=== PATIENT | female | born 1985 | race Caucasian/White ===

== ENCOUNTER 2024-04-28 19:30 | Emergency (ER) | payer OTHER ==
[~2024-04-28] VITALS: Ht 165.1 cm; Wt 98.0 kg
[2024-04-28 20:14] LABS: HEMATOCRIT 38.7 % (35.0-50.0); MCH 29.4 (27-36); MCHC 33.6 g/dl (30-36); MCV 87.5 fl (81-99); PLATELET COUNT 420 K/uL (140-440); RBC 4.42 M/ul (4.3-5.7); RDW 13.4 (10.5-15.0)
[2024-04-28] MEDS ORDERED: DAPTOmycin 500 MG/10 ML VIAL IV ONE (20:15)
[2024-04-28] MEDS ORDERED: CEFTRIAXONE/SODIUM CHLORIDE 2 GM/100 ML PIGGYBACK IV ONE (20:15)
[2024-04-28] MEDS ORDERED: LORazepam 2 MG/ML VIAL IV ONE (20:15)
[2024-04-28 20:18] LABS: INR 0.99 (0.80-1.30); PROTIME 12.7 Sec (11.2-14.2)
[2024-04-28 20:20] LABS: PARTIAL THROMBOPLASTIN TIME 30.5 Sec (22.9-41.3)
[2024-04-28 20:24] LABS: ALBUMIN 2.8 g/dL (3.4-5.0); ALBUMIN/GLOBULIN RATIO 0.7 (1.1-2.4); ANION GAP 14.2 (7-21); BILIRUBIN, TOTAL 0.2 ng/dL (0.2-1.0); BUN/CREATININE RATIO 17.74 (6.0-28.6); CALCIUM 8.9 mg/dL (8.5-10.1); CREATININE, SERUM 0.62 mg/dL (0.55-1.02); POTASSIUM 4.2 mmol/L (3.5-5.1); PROTEIN, TOTAL 6.8 g/dL (6.4-8.2)
[2024-04-28 20:27] LABS: EOSINOPHILS, MANUAL DIFF 1; LYMPHOCYTES, MANUAL DIFF 32; MONOCYTES, MANUAL DIFF 4; NEUTROPHILS, MANUAL DIFF 63
[2024-04-28 20:30] LABS: LACTIC ACID, BLOOD 1.1 mmol/L (0.4-2.0)
[2024-04-28] MEDS ORDERED: LACTATED RINGER'S 1,000 ML IV ONE (20:30)
[2024-04-28] MEDS ORDERED: KETOROLAC TROMETHAMINE 30 MG/ML VIAL IV ONE (20:30)
[2024-04-28 21:44] LABS: BILIRUBIN, URINE NEGATIVE (negative); BLOOD/HGB, URINE NEGATIVE (Negative); KETONE, URINE NEGATIVE (Negative); LEUK ESTERASE, URINE TRACE (negative); NITRITE, URINE NEGATIVE (negative)
[2024-04-28 21:54] LABS: BACTERIA, URINE RARE /hpf (negative); EPITHELIAL CELLS, URINE SQUAMOUS 1+ /lpf (0-1+); RED BLOOD CELLS, URINE 0-1 /hpf (0-5)
[2024-04-28 21:56] LABS: CASTS, URINE NONE SEEN \\lpf; COLLECTION TYPE, URINE CLEAN CATCH; CRYSTALS, URINE AMORPHOUS PHOSPH 3+ (0-1+); REFLEX CULTURE, URINE No (No)
[2024-04-29] MEDS ORDERED: KETOROLAC TROMETHAMINE 30 MG/ML VIAL IV ONE (02:30)
[2024-04-29] MEDS ORDERED: DOXYCYCLINE HYCLATE 100 MG HOME.PACK PO ONE (03:00)
[2024-04-29 03:33] VITALS: BP 127/74
== END 2024-04-29 03:30 | disposition home or self-care (01) ==
LOC: ED 19:30
PROVIDERS: Internal Medicine
DX: L02.413 Cutaneous abscess of right upper limb (principal); L02.414 Cutaneous abscess of left upper limb; F15.10 Other stimulant abuse, uncomplicated; E11.9 Type 2 diabetes mellitus without complications; Z88.0 Allergy status to penicillin; Z88.5 Allergy status to narcotic agent
CPT/HCPCS: 10061; 36415; 51701; 71045; 80053; 81001; 83605; 85025; 85610; 85730; 87070; 87075; 87186; 87205; 99283-25; A9270; J0696; J0878; J1885; J2060; J7121

== ENCOUNTER 2024-05-02 18:09 | Emergency (ER) | payer OTHER ==
[~2024-05-02] VITALS: Ht 165.1 cm; Wt 97.6 kg
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
[2024-05-02] MEDS ORDERED: TRIMETHOPRIM/SULFAMETHOXAZOLE 1 EA TAB PO ONE (19:00)
[2024-05-02] MEDS ORDERED: clindamycin HCL 300 MG CAP PO ONE (19:00)
[2024-05-02] MEDS ORDERED: CLEOCIN HCL300 MG PO (19:23)
[2024-05-02] MEDS ORDERED: BACTRIM DS TAB1 EACH PO (19:23)
[2024-05-02 19:30] VITALS: BP 120/82
== END 2024-05-02 19:30 | disposition home or self-care (01) ==
LOC: ED 18:09
DX: L02.413 Cutaneous abscess of right upper limb (principal); Z88.0 Allergy status to penicillin; Z88.5 Allergy status to narcotic agent; Z88.6 Allergy status to analgesic agent
CPT/HCPCS: 10060; 99282-25; A9270

== ENCOUNTER 2024-10-02 22:38 | Emergency (ER) | payer OTHER ==
[~2024-10-02] VITALS: Ht 165.1 cm; Wt 74.8 kg
[~2024-10-02 22:38] MED LIST: BACTRIM DS TAB1 EACH PO; CLEOCIN HCL300 MG PO
[2024-10-02 22:57] LABS: HEMOGLOBIN 14.1 g/dL (12.0-18.0); MCH 28.5 (27-36); MCHC 32.7 g/dl (30-36)
[2024-10-02 22:59] LABS: BASOPHILS 0.7 % (0-2); EOSINOPHILS 1.5 % (0-6); HEMATOCRIT 43.2 % (35.0-50.0); LYMPHOCYTES 35.9 % (24-44); MCV 87.1 fl (81-99); MONOCYTES 7.9 % (0-12); PLATELET COUNT 334 K/uL (140-440); RBC 4.96 M/ul (4.3-5.7); RDW 13.8 (10.5-15.0)
[2024-10-02] MEDS ORDERED: NALOXONE HCL 2 MG/2 ML SYR IV ONE (23:00)
[2024-10-02 23:10] LABS: ACETAMINOPHEN 0 ug/mL (10-30); ALBUMIN 3.3 g/dL (3.4-5.0); ALBUMIN/GLOBULIN RATIO 0.94 (1.1-2.4); ALCOHOL, MEDICAL <3 ng/dL (<3); ALKALINE PHOSPHATASE 104 U/L (46-116); ALT (SGPT) 29 U/L (14-59); ANION GAP 10.7 (7-21); AST (SGOT) 28 U/L (15-37); BILIRUBIN, TOTAL 0.4 ng/dL (0.2-1.0); BUN/CREATININE RATIO 33.78 (6.0-28.6); CALCIUM 8.9 mg/dL (8.5-10.1); CARBON DIOXIDE 26 mmol/L (21-32); CHLORIDE 102 mmol/L (98-107); CREATININE, SERUM 0.74 mg/dL (0.55-1.02); GLOMERULAR FILTRATION RATE,EST 105 mL/min (>60); POTASSIUM 4.7 mmol/L (3.5-5.1); PROTEIN, TOTAL 6.8 g/dL (6.4-8.2); SALICYLATE 1.7 mg/dL (2.8-20.0); UREA NITROGEN 25 mg/dL (7-18)
[2024-10-02 23:18] LABS: AMPHETAMINES, URINE POSITIVE (NEGATIVE); BARBITURATES, URINE NEGATIVE (NEGATIVE); BENZODIAZEPINE, URINE NEGATIVE (NEGATIVE); BUPRENORPHINE, URINE NEGATIVE (NEGATIVE); CANNABINOID, URINE NEGATIVE (NEGATIVE); COCAINE, URINE NEGATIVE (NEGATIVE); ECSTASY, URINE POSITIVE (NEGATIVE); FENTANYL, URINE NEGATIVE (NEGATIVE); METHADONE, URINE NEGATIVE (NEGATIVE); OPIATES, URINE NEGATIVE (NEGATIVE); OXYCODONE, URINE NEGATIVE (NEGATIVE); PHENCYCLIDINE, URINE NEGATIVE (NEGATIVE)
[2024-10-02] MEDS ORDERED: LEVOFLOXACIN750 MG PO (23:35)
[2024-10-02] MEDS ORDERED: NALOXONE 4 MG NASAL SPRAY #2 HOME.PACK NAS ONE (23:45)
[2024-10-02] MEDS ORDERED: levoFLOXacin 750 MG PIGGYBACK IV ONE (23:45)
[2024-10-03 04:45] VITALS: BP 114/73
--- NOTE | 2024-10-03 21:35 | EKG ---
[facility] [address] [place], [place] [address] Signed Normal sinus rhythm Normal ECG No previous ECGs available Confirmed by Truman Benavides MD () on 10/03/2024 9:35:03 PM Electronically Signed By: TRUMAN BENAVIDES MD 10/03/242134 PATIENT NAME: MARCELO ELLIOTT Electrocardiogram DATE OF : 85 PHYSICIAN: TRUMAN BENAVIDES MD REPORT #: [id number] REPORT IS CONFIDENTIAL AND NOT TO BE RELEASED WITHOUT AUTHORIZATION
== END 2024-10-03 04:45 | disposition home or self-care (01) ==
LOC: ED 22:38
PROVIDERS: Family Medicine
DX: T40.411A Poisoning by fentanyl or fentanyl analogs, accidental (unintentional), initial encounter (principal); T43.651A Poisoning by methamphetamines accidental (unintentional), initial encounter; R45.1 Restlessness and agitation; J18.9 Pneumonia, unspecified organism; E11.9 Type 2 diabetes mellitus without complications; Z88.0 Allergy status to penicillin; Z88.8 Allergy status to other drugs, medicaments and biological substances; Z88.6 Allergy status to analgesic agent; Z79.899 Other long term (current) drug therapy
CPT/HCPCS: 36415; 71045; 80053; 80307; 84703; 85025; 93005; 93010; 96374; 96375; 99284-25; G0480; J1956; J2310; J3490

== ENCOUNTER 2024-11-05 06:37 | Emergency (ER) | payer OTHER ==
[~2024-11-05] VITALS: Ht 165.1 cm; Wt 88.9 kg
[~2024-11-05 06:37] MED LIST changes: +LEVOFLOXACIN750 MG PO
[2024-11-05] MEDS ORDERED: SODIUM CHLORIDE 0.9% 1,000 ML IV ONE (07:30)
[2024-11-05] MEDS ORDERED: MORPHINE SULFATE 4 MG/ML VIAL IV ONE (07:30)
[2024-11-05] MEDS ORDERED: CLINDAMYCIN PHOSPHATE/D5W 600 MG/50 ML PIGGYBACK IV ONE (07:45)
[2024-11-05 07:49] LABS: HEMATOCRIT 40.1 % (35.0-50.0); HEMOGLOBIN 13.5 g/dL (12.0-18.0); MCH 29.1 (27-36); MCHC 33.6 g/dl (30-36); MCV 86.4 fl (81-99); PLATELET COUNT 280 K/uL (140-440); RBC 4.63 M/ul (4.3-5.7); RDW 13.7 (10.5-15.0)
[2024-11-05 08:04] LABS: BASOPHILS, MANUAL DIFF 1; LYMPHOCYTES, MANUAL DIFF 12; MONOCYTES, MANUAL DIFF 5; NEUTROPHILS, MANUAL DIFF 82
[2024-11-05 08:05] LABS: ALBUMIN 3.1 g/dL (3.4-5.0); ALBUMIN/GLOBULIN RATIO 0.82 (1.1-2.4); BILIRUBIN, TOTAL 0.7 mg/dL (0.2-1.0); BUN/CREATININE RATIO 10.97 (6.0-28.6); CALCIUM 8.7 mg/dL (8.5-10.1); CREATININE, SERUM 0.82 mg/dL (0.55-1.02); PROTEIN, TOTAL 6.9 g/dL (6.4-8.2)
[2024-11-05 08:21] LABS: LACTIC ACID, BLOOD 3.1 mmol/L (0.4-2.0)
[2024-11-05] MEDS ORDERED: CLEOCIN HCL300 MG PO (09:36)
[2024-11-05 09:45] VITALS: BP 150/94
== END 2024-11-05 09:46 | disposition home or self-care (01) ==
LOC: ED 06:37
PROVIDERS: Emergency Medicine
DX: L03.211 Cellulitis of face (principal); F15.10 Other stimulant abuse, uncomplicated; S71.101A Unspecified open wound, right thigh, initial encounter; T50.906A Underdosing of unspecified drugs, medicaments and biological substances, initial encounter; E11.9 Type 2 diabetes mellitus without complications; F17.200 Nicotine dependence, unspecified, uncomplicated; Z91.148 Patient's other noncompliance with medication regimen for other reason; Z88.0 Allergy status to penicillin; Z88.5 Allergy status to narcotic agent; Z88.6 Allergy status to analgesic agent; Z88.8 Allergy status to other drugs, medicaments and biological substances; Z79.2 Long term (current) use of antibiotics; X58.XXXA Exposure to other specified factors, initial encounter
CPT/HCPCS: 36415; 70491; 80053; 83605; 84703; 85025; 96375; 99284-25; J2270; J7030; Q9967

== ENCOUNTER 2025-01-07 12:52 | Emergency (ER) | payer OTHER ==
[~2025-01-07] VITALS: Ht 165.1 cm; Wt 99.4 kg
[2025-01-07] MEDS ORDERED: LORazepam 1 MG TAB PO ONE (13:30)
[2025-01-07] MEDS ORDERED: HYDROCODONE/ACETA 5/325 TAB PO ONE (14:15)
[2025-01-07] MEDS ORDERED: ONDANSETRON 4 MG TAB ODT SL ONE (14:15)
[2025-01-07] MEDS ORDERED: HYDROCODON-ACE1 EA10 PO (14:18)
[2025-01-07] MEDS ORDERED: ONDANSETRON ODT8 MG PO (14:18)
[2025-01-07 14:30] VITALS: BP 141/91
== END 2025-01-07 14:30 | disposition home or self-care (01) ==
LOC: ED 12:52
DX: S20.212A Contusion of left front wall of thorax, initial encounter (principal); E11.9 Type 2 diabetes mellitus without complications; W18.30XA Fall on same level, unspecified, initial encounter; Z88.0 Allergy status to penicillin; Z88.5 Allergy status to narcotic agent; Z88.8 Allergy status to other drugs, medicaments and biological substances
CPT/HCPCS: 71046; 99284-25; A9270; A9270-GY

== ENCOUNTER 2025-01-12 20:36 | Emergency (ER) | payer OTHER ==
[~2025-01-12] VITALS: Ht 165.1 cm; Wt 99.0 kg
[~2025-01-12 20:36] MED LIST changes: +HYDROCODON-ACE1 EA10 PO; +ONDANSETRON ODT8 MG PO
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
[2025-01-12] MEDS ORDERED: TRAMADOL HCL 50 MG TAB PO ONE (21:15)
[2025-01-12 21:50] LABS: BASOPHILS 0.6 % (0-2); HEMATOCRIT 37.2 % (35.0-50.0); HEMOGLOBIN 12.7 g/dL (12.0-18.0); LYMPHOCYTES 22.3 % (24-44); MCH 29.2 (27-36); MCV 85.9 fl (81-99); MONOCYTES 8.9 % (0-12); NEUTROPHILS 67.2 % (39-80); PLATELET COUNT 186 K/uL (140-440); RBC 4.33 M/ul (4.3-5.7); RDW 13.8 (10.5-15.0)
[2025-01-12] MEDS ORDERED: DOXYCYCLINE HYCLATE 100 MG HOME.PACK PO ONE (22:15)
[2025-01-12] MEDS ORDERED: HIBICLENS118 ML TOP (22:18)
[2025-01-12] MEDS ORDERED: CENTANY30 GM TOP (22:18)
[2025-01-12] MEDS ORDERED: methylPREDNISolone 4 MG HOME.PACK PO ONE (22:30)
[2025-01-12 22:36] VITALS: BP 126/79
== END 2025-01-12 22:39 | disposition home or self-care (01) ==
LOC: ED 20:36
PROVIDERS: Family Medicine
DX: J18.9 Pneumonia, unspecified organism (principal); L03.313 Cellulitis of chest wall; E11.9 Type 2 diabetes mellitus without complications; Z88.0 Allergy status to penicillin; Z88.5 Allergy status to narcotic agent; Z88.1 Allergy status to other antibiotic agents; Z88.8 Allergy status to other drugs, medicaments and biological substances
CPT/HCPCS: 36415; 71045; 85025; 99284-25; A9270

== ENCOUNTER 2025-02-17 18:08 | Emergency (ER) | payer OTHER ==
[~2025-02-17] VITALS: Ht 165.1 cm; Wt 97.7 kg
[~2025-02-17 18:08] MED LIST changes: +CENTANY30 GM TOP; +HIBICLENS118 ML TOP
[2025-02-17] MEDS ORDERED: ACETAMINOPHEN 500 MG TAB PO ONE (18:45)
[2025-02-17] MEDS ORDERED: SODIUM CHLORIDE 0.9% 1,000 ML IV PRN (18:45)
[2025-02-17 19:22] LABS: BASOPHILS 0.3 % (0.1-1.2); EOSINOPHILS 0 % (0.7-5.8); HEMATOCRIT 35.9 % (34.1-44.9); LYMPHOCYTES 5.8 % (19.3-51.7); MCH 28.6 PG (25.6-32.2); MCHC 33.4 g/dL (32.2-35.5); MCV 85.7 fL (79.4-94.8); MONOCYTES 6.2 % (4.7-12.5); NEUTROPHILS 86.8 % (34.0-71.1); PLATELET COUNT 253 K/uL (182-369); RBC 4.19 M/uL (3.93-5.22)
[2025-02-17] MEDS ORDERED: DAPTOmycin 500 MG/10 ML VIAL IV ONE (19:30)
[2025-02-17 19:39] LABS: ALBUMIN 2.3 g/dL (3.4-5.0); ALBUMIN/GLOBULIN RATIO 0.49 (1.1-2.4); ANION GAP 15.8 (7-21); BILIRUBIN, TOTAL 0.7 mg/dL (0.2-1.0); BUN/CREATININE RATIO 15.12 (6.0-28.6); CALCIUM 8.4 mg/dL (8.5-10.1); CREATININE, SERUM 1.19 mg/dL (0.55-1.02); POTASSIUM 3.8 mmol/L (3.5-5.1)
[2025-02-17 19:45] LABS: LACTIC ACID, BLOOD 2.1 mmol/L (0.4-2.0)
[2025-02-17 19:54] LABS: BILIRUBIN, URINE NEGATIVE (negative); BLOOD/HGB, URINE LARGE (Negative); KETONE, URINE TRACE (Negative); LEUK ESTERASE, URINE NEGATIVE (negative); NITRITE, URINE NEGATIVE (negative)
[2025-02-17 20:00] LABS: BACTERIA, URINE 2+ /hpf (negative); CASTS, URINE GRANULAR 1+ \\lpf; CRYSTALS, URINE NONE SEEN (0-1+); EPITHELIAL CELLS, URINE SQUAMOUS 1+ /lpf (0-1+); RED BLOOD CELLS, URINE 0-1 /hpf (0-5)
[2025-02-17 20:01] LABS: COLLECTION TYPE, URINE CLEAN CATCH; REFLEX CULTURE, URINE Yes (No)
[2025-02-17 20:28] LABS: AMPHETAMINES, URINE POSITIVE (NEGATIVE); BARBITURATES, URINE NEGATIVE (NEGATIVE); BENZODIAZEPINE, URINE NEGATIVE (NEGATIVE); BUPRENORPHINE, URINE NEGATIVE (NEGATIVE); CANNABINOID, URINE NEGATIVE (NEGATIVE); COCAINE, URINE NEGATIVE (NEGATIVE); ECSTASY, URINE POSITIVE (NEGATIVE); FENTANYL, URINE NEGATIVE (NEGATIVE); METHADONE, URINE NEGATIVE (NEGATIVE); OPIATES, URINE NEGATIVE (NEGATIVE); OXYCODONE, URINE NEGATIVE (NEGATIVE); PHENCYCLIDINE, URINE NEGATIVE (NEGATIVE)
[2025-02-17] MEDS ORDERED: LACTATED RINGER'S 1,000 ML IV ONE (21:00)
[2025-02-17] MEDS ORDERED: AZITHROMYCIN 500 MG in DEXTROSE 5% 250 ML IV ONE (21:00)
[2025-02-17] MEDS ORDERED: IBUPROFEN 600 MG TAB PO ONE (21:15)
[2025-02-17] MEDS ORDERED: ONDANSETRON ODT8 MG PO (21:41)
[2025-02-17 23:23] VITALS: BP 116/79
--- NOTE | 2025-02-18 13:31 | EKG ---
[facility] [address] [place] [address] Signed Sinus tachycardia Otherwise normal ECG When compared with ECG of 02-OCT-2024 22:40, No significant change was found Confirmed by Truman Benavides MD () on 02/18/2025 1:30:54 PM Electronically Signed By: TRUMAN BENAVIDES MD 02/18/25 1331 PATIENT NAME: MARCELO ELLIOTT Electrocardiogram DATE OF : 85 PHYSICIAN: TRUMAN BENAVIDES MD REPORT #: [id number] REPORT IS CONFIDENTIAL AND NOT TO BE RELEASED WITHOUT AUTHORIZATION
== END 2025-02-17 23:34 | disposition home or self-care (01) ==
LOC: ED 18:08
PROVIDERS: Emergency Medicine; Family Medicine
DX: J18.9 Pneumonia, unspecified organism (principal); N39.0 Urinary tract infection, site not specified; E11.9 Type 2 diabetes mellitus without complications; Z79.899 Other long term (current) drug therapy; Z88.0 Allergy status to penicillin; Z88.5 Allergy status to narcotic agent; Z88.8 Allergy status to other drugs, medicaments and biological substances
CPT/HCPCS: 36415; 71045; 80053; 80307; 81001; 83036; 83605; 83735; 85025; 85060; 87040; 87088; 93005; 93010; 96361; 96365; 96375; 99284-25; A9270; J0456; J0878; J7030; J7060; J7121